=== PATIENT | female | born 1970 | race Two or more races ===

== ENCOUNTER 2023-09-22 18:34 | Emergency (ER) | payer OTHER ==
[~2023-09-22] VITALS: Ht 157.5 cm; Wt 55.8 kg
[2023-09-22] MEDS ORDERED: FAMOTIDINE/PF 20 MG/2 ML VIAL IV ONE (20:15)
[2023-09-22] MEDS ORDERED: METHYLPREDNISOLONE SOD SUCC 125 MG VIAL IV ONE (20:15)
[2023-09-22] MEDS ORDERED: DIPHENHYDRAMINE HCL 50 MG/ML VIAL 1ML IV ONE (20:15)
[2023-09-22 21:45] LABS: HEMATOCRIT 37.8 % (36.0-45.00); HEMOGLOBIN 13.2 g/dL (12.0-15.00); MEAN CELL VOLUME 93.2 fL (80.00-100.00); MEAN CORPUSCULAR HEMOGLOBIN 32.6 pg (27.00-32.0); PLATELET COUNT 210 K/uL (150-450); RED BLOOD COUNT 4.05 M/uL (4.00-6.00); RED CELL DISTRIBUTION WIDTH 13.1 % (11.5-14.5)
[2023-09-22 21:46] LABS: ERYTHROCYTE SEDIMENTATION RATE 33 mm/hr
[2023-09-22 22:07] LABS: ANION GAP 9 (10.0-20.0); BLOOD UREA NITROGEN 15 mg/dL (7-18); BUN CREA RATIO 19 (7.0-25.0); CALCIUM 8.4 mg/dL (8.5-10.1); CARBON DIOXIDE 26 mEq/L (21-32); CHLORIDE 106 mmol/L (98-107); CREATININE SERUM 0.81 mg/dL (0.55-1.02); GFR 74.54; GLUCOSE FASTING 119 mg/dL (65-100); OSMOLALITY SERUM 278 MOSM/KG (275-295); SODIUM 138 mmol/L (136-145)
[2023-09-22 22:10] LABS: C-REACTIVE PROTEIN < 0.29 MG/DL (0.00-0.29)
[2023-09-22] MEDS ORDERED: DIPHENHYDRAMINE50 M1 PO (23:11)
[2023-09-22] MEDS ORDERED: PEPCID AC20 MG PO (23:11)
[2023-09-22] MEDS ORDERED: MEDROLPACK PO (23:11)
== END 2023-09-22 23:56 ==
LOC: ER 18:34
PROVIDERS: Nurse Practitioner Family
DX: L98.9 Disorder of the skin and subcutaneous tissue, unspecified (principal)